=== PATIENT | female | born 1960 | race Caucasian/White ===

== ENCOUNTER 2020-02-06 07:39 | Outpatient (RCR) | payer OTHER, SELFPAY ==
[2020-02-06 08:59] LABS: COVID-19 Test Negative (Negative)
[2020-02-14 08:14] LABS: COVID-19 Test Negative (Negative); IDNOW Serial# 55D5AD1C
[2020-02-21 08:48] LABS: COVID-19 Test Negative (Negative); IDNOW Serial# 55D5AD1C
[2020-02-27 08:27] LABS: COVID-19 Test Negative (Negative)
[2020-03-15 13:15] LABS: SARS-COV-2 PCR UMBRL Not Detected
[2020-03-21 12:22] LABS: SARS-COV-2 PCR UMBRL Not Detected
[2020-03-27 08:14] LABS: SARS-COV-2 PCR UMBRL Not Detected
[2020-04-10 09:47] LABS: SARS-COV-2 PCR UMBRL NOT DETECTED
[2020-04-11 13:30] LABS: SARS-COV-2 PCR UMBRL Not Detected
== END 2020-02-06 07:40 | disposition home or self-care (01) ==
LOC: HO.EMPCOV 07:39
PROVIDERS: Visit Provider Internal Medicine
DX: Z20.828 Contact with and (suspected) exposure to other viral communicable diseases (principal)
CPT/HCPCS: 36415; 87635; C9803; U0003